=== PATIENT | male | born 1990 | race Caucasian/White ===

== ENCOUNTER → 2024-02-26 19:34 | Outpatient (REF) | payer BC, SELFPAY | LOC: MRI 3T 19:34 | PROVIDERS: ATTENDING PHYSICIAN Physician Assistant; FAMILY PHYSICIAN Family Medicine | DX: E22.1 Hyperprolactinemia (principal) | CPT/HCPCS: 70553; A9575 ==

== ENCOUNTER → 2025-08-15 18:03 | Outpatient (REF) | payer BC, SELFPAY | LOC: MRI 3T 18:03 | PROVIDERS: ATTENDING PHYSICIAN Physician Assistant; FAMILY PHYSICIAN Family Medicine | DX: E22.1 Hyperprolactinemia (principal); D35.2 Benign neoplasm of pituitary gland | CPT/HCPCS: 70553; A9575 ==